=== PATIENT | male | born 1950 | race Caucasian/White ===

== ENCOUNTER 2017-04-06 08:51 | Emergency (ER) | payer OTHER ==
[~2017-04-06] VITALS: Ht 165.1 cm; Wt 112.7 kg
[~2017-04-06 08:51] MED LIST: AMO500 PO; FLA500 PO; FOLIC ACID1 MG PO; LEVAQUIN500 MG PO; PANTOPRAZOLE SO40 M1 PO; SLOFE PO
[2017-04-06 08:58] VITALS: BP 156/72
== END 2017-04-06 09:56 | disposition home or self-care (01) ==
LOC: ED 08:51
DX: K04.7 Periapical abscess without sinus (principal); I10 Essential (primary) hypertension; E03.9 Hypothyroidism, unspecified; E78.5 Hyperlipidemia, unspecified
CPT/HCPCS: J0561

== ENCOUNTER 2017-04-07 01:48 | Emergency (ER) | payer OTHER ==
[2017-04-07 02:34] VITALS: BP 152/102
== END 2017-04-07 02:34 | disposition home or self-care (01) ==
LOC: ED 01:48
DX: K04.7 Periapical abscess without sinus (principal); I10 Essential (primary) hypertension; E07.9 Disorder of thyroid, unspecified